=== PATIENT | female | born 1980 | race Two or more races ===

== ENCOUNTER 2019-04-12 02:56 | Emergency (ER) | payer OTHER ==
[~2019-04-12] VITALS: Ht 160 cm; Wt 55.8 kg
[2019-04-12] MEDS ORDERED: DUI500 PO (08:14)
[2019-04-12] MEDS ORDERED: URIN D.S. TABL1 EACH PO (08:14)
[2019-04-12] MEDS ORDERED: KETO10TA2 PO (08:14)
== END 2019-04-12 09:02 ==
LOC: ER 02:56
DX: N39.0 Urinary tract infection, site not specified (principal); B96.4 Proteus (mirabilis) (morganii) as the cause of diseases classified elsewhere; R10.11 Right upper quadrant pain